=== PATIENT | female | born 1975 | race Hispanic/Latino ===

== ENCOUNTER → 2018-05-31 | Emergency (ER) | payer SELFPAY ==
[~2018-05-31] VITALS: Ht 162.6 cm; Wt 136.1 kg
== END | disposition left against medical advice (07) ==
LOC: ER 20:20
DX: M79.673 Pain in unspecified foot (principal)

== ENCOUNTER 2024-03-10 01:02 | Emergency (ER) | payer SELFPAY ==
[~2024-03-10] VITALS: Ht 162.6 cm; Wt 136.1 kg
[2024-03-10 01:05] VITALS: PULSE 99; RESP 21; TEMP 98.7
[2024-03-10] MEDS: TRAMADOL HCL 50 MG TAB PO ONE (01:51)
[2024-03-10] MEDS: DEXAMETHASONE SOD PHOS INJ 4 MG/ML SDV IM ONE (01:51)
[2024-03-10] MEDS: KETOROLAC TROMETHAMINE 60 MG/2 ML VIAL IM ONE (01:51)
[2024-03-10 02:15] VITALS: BP 157/79; PULSE 90; RESP 19; TEMP 98.2; O2SAT 98
== END 2024-03-10 01:51 | disposition home or self-care (01) ==
LOC: FSED 01:06
DX: M54.32 Sciatica, left side (principal); E66.01 Morbid (severe) obesity due to excess calories; F17.210 Nicotine dependence, cigarettes, uncomplicated
CPT/HCPCS: 99283; J1100; J1885

== ENCOUNTER 2024-10-31 22:59 | Emergency (ER) | payer SELFPAY ==
[~2024-10-31] VITALS: Ht 162.6 cm; Wt 136.1 kg
[2024-11-01 00:41] LABS: BASOPHILS % 0.2 % (0.0-1.0); EOSINOPHILS % 2.6 % (0.0-6.0); LYMPHOCYTES % 14.9 % (18.0-39.1); MONOCYTES % 6.5 % (4.4-11.3); NEUTROPHILS % 75.2 % (38.7-80.0); RED CELL DISTRIBUTION WIDTH 15.0 % (11.7-14.4)
[2024-11-01] MEDS: ONDANSETRON HCL INJ 2MG/ML 2ML 2 MG/ML VIAL IV STA (01:08)
[2024-11-01] MEDS: Morphine 4mg INJECTION 4 MG/ML INJ IV STA (01:08)
[2024-11-01] MEDS ORDERED: Morphine 2mg Syringe 2 MG/ML SYR ONE (03:37)
[2024-11-01 04:15] VITALS: PULSE 103; RESP 20; TEMP 98.8; O2SAT 99
[2024-11-01 04:52] LABS: EST GLOMERULAR FILTRATION RATE 69.0 ML/MIN (>=60)
[2024-11-01] MEDS ORDERED: AMOX TR-K CLV1 EAC2 PO (05:08)
[2024-11-01] MEDS ORDERED: ULTRAM 50MG50 MG PO (05:08)
== END 2024-11-01 04:18 | disposition home or self-care (01) ==
LOC: ER 23:14
DX: M79.672 Pain in left foot (principal); M79.89 Other specified soft tissue disorders; E66.9 Obesity, unspecified
CPT/HCPCS: 36415; 73630; 80053; 85025; 99284; J2270 ×2; J2405; J2543

== ENCOUNTER 2024-11-06 08:52 | Emergency (ER) | payer SELFPAY ==
[~2024-11-06] VITALS: Ht 162.6 cm; Wt 136.1 kg
[~2024-11-06 08:52] MED LIST: AMOX TR-K CLV1 EAC2 PO; ULTRAM 50MG50 MG PO
[2024-11-06 09:00] VITALS: TEMP 98.4
[2024-11-06 10:04] LABS: BASOPHILS % 0.4 % (0.0-1.0); EOSINOPHILS % 2.8 % (0.0-6.0); LYMPHOCYTES % 21.2 % (18.0-39.1); MONOCYTES % 6.8 % (4.4-11.3); NEUTROPHILS % 67.4 % (38.7-80.0); RED CELL DISTRIBUTION WIDTH 14.4 % (11.7-14.4)
[2024-11-06 10:14] LABS: EST GLOMERULAR FILTRATION RATE 57.0 ML/MIN (>=60)
[2024-11-06] MEDS: KETOROLAC TROMETHAMINE 30 MG/ML VIAL IV STA (10:14)
[2024-11-06 11:00] VITALS: PULSE 99; RESP 17; O2SAT 98
[2024-11-06] MEDS: METHYLPREDNISOLONE SOD SUCC 125 MG/2ML VIAL IV ONE (11:08)
[2024-11-06] MEDS ORDERED: PREDNISONE50 MG PO (11:31)
[2024-11-06] MEDS ORDERED: COLCHICINE0.6 M1 PO (11:31)
== END 2024-11-06 12:30 | disposition home or self-care (01) ==
LOC: ER 09:03
DX: M79.672 Pain in left foot (principal); M10.9 Gout, unspecified; E66.9 Obesity, unspecified
CPT/HCPCS: 36415; 80053; 84550; 85025; 99284; J1885; J2919

== ENCOUNTER 2024-11-27 12:40 | Emergency (ER) | payer SELFPAY ==
[~2024-11-27] VITALS: Ht 162.6 cm; Wt 136.1 kg
[~2024-11-27 12:40] MED LIST changes: +COLCHICINE0.6 M1 PO; +PREDNISONE50 MG PO
[2024-11-27 13:31] VITALS: PULSE 85; RESP 19; TEMP 97.1; O2SAT 99
[2024-11-27] MEDS: TRAMADOL HCL 50 MG TAB PO ONE (14:00)
[2024-11-27] MEDS: KETOROLAC TROMETHAMINE 60 MG/2 ML VIAL IM ONE (14:01)
[2024-11-27] MEDS: CYCLOBENZAPRINE HCL 10 MG TAB PO ONE (14:01)
[2024-11-27] MEDS ORDERED: CYCLOBENZAPRINE10 MG PO (15:30)
== END 2024-11-27 15:55 | disposition home or self-care (01) ==
LOC: ER 13:38
DX: M54.32 Sciatica, left side (principal); M54.31 Sciatica, right side; E66.9 Obesity, unspecified; Z68.43 Body mass index [BMI] 50.0-59.9, adult
CPT/HCPCS: 99282; J1885